=== PATIENT | male | born 1990 | race Caucasian/White ===

== ENCOUNTER 2021-08-14 17:41 | Emergency (ER) | payer OTHER, SELFPAY ==
--- NOTE | ~2021-08-14 | CT_ITS ---
EXAMINATION: CT brain wo con DATE: 08/14/2021 21:34 INDICATION: Seizure. Altered mental status. TECHNIQUE: Computed tomography (CT) of the head was performed without intravenous contrast. The mA wa s adjusted according to patient size. Iterative reconstruction technique was employed. The dose-lengt h product was 605.33 mGy-cm. COMPARISON: Head CT 09/26/2009 FINDINGS: There is no intracranial hemorrhage, acute infarction, or abnormal intracranial mass lesion . The ventricles are normal in size. The paranasal sinuses are clear. The mastoid air cells are simi l. IMPRESSION: 1. Normal brain. Reviewed, dictated and finalized at location A. IMPRESSION: 1. Normal brain.
[2021-08-14 17:45] VITALS: BP 134/78; PULSE 120; RESP 16; TEMP 36.1; O2SAT 97
[2021-08-14 20:32] VITALS: BP 150/109; PULSE 112; RESP 28; O2SAT 97
[2021-08-14 20:38] VITALS: BP 145/85
--- NOTE | 2021-08-14 20:39 | ECG_ITS ---
Measurements Intervals [place] Rate: 91 P: 26 GA: 160 QRS: 9 QRSD: 105 T: 28 QT: 368 QTc: 454 Interpretive Statements SINUS RHYTHM NORMAL ECG Electronically Signed On 08-15-2021 6:39:02 CDT by Tex Coronado D.O.
[2021-08-14] MEDS: SODIUM CHLORIDE 0.9% IV 1,000 ML 999 ML IV CONT (20:45)
[2021-08-14 20:51] LABS: Basophils Absolute Auto 0.1 K/mm3 (0.0-0.1); Basophils Percent Auto 0.3 % (0.2-1.2); Eosinophils Percent Auto 0.1 % (0-4.4); Hematocrit 52.7 % (42.0-52.0); Hemoglobin 17.2 g/dL (14.0-18.0); Immature Granulocyte Absolute 0.06 K/mm3 (0.00-0.031); Immature Granulocyte Percent A 0.4 % (0-0.5); Lymphocytes Absolute Auto 0.95 K/mm3 (0.9-3.2); Lymphocytes Percent Auto 6.5 % (18.3-44.2); Mean Corpuscular HGB Conc 32.6 g/dl (32-36); Mean Corpuscular Hemoglobin 27.9 pg (26-34); Mean Corpuscular Volume 85.4 fl (80-100); Mean Platelet Volume 10.3 fl (7.4-10.4); Monocytes Absolute Auto 0.6 K/mm3 (0.1-0.6); Monocytes Percent Auto 3.8 % (2.6-8.5); Neutrophils Absolute Auto 12.9 K/mm3 (1.3-6.7); Neutrophils Percent Auto 88.9 % (45.5-73.1); Platelet Count Result 292 k/mm3 (150-375); Red Blood Count 6.17 M/mm3 (4.6-6.20); Red Cell Distribution Width 13.2 % (11.5-14.5); White Blood Count 14.6 K/mm3 (4.5-10.0)
[2021-08-14 21:03] LABS: Alanine Aminotransferase 24 U/L (4-50); Alkaline Phosphatase 92 U/L (38-126); Anion Gap 10 mmol/L (8-16); Aspartate Amino Transferase 31 U/L (17-59); Bilirubin,Total 0.7 mg/dL (0.2-1.3); Blood Urea Nitrogen 9 mg/dL (9-20); Calcium 8.8 mg/dL (8.4-10.2); Carbon Dioxide 25 mmol/L (22-30); Chloride 104 mmol/L (98-107); Estimated CRCL calculation 133 ml/min; Estimated Glomerular Filt Rate > 60; Glucose 103 mg/dL (65-110); Potassium 3.9 mmol/L (3.4-5.0); Sodium 139 mmol/L (137-145)
--- NOTE | 2021-08-14 21:19 | ED.SEIZURE ---
HPI - Seizure General Chief Complaint: Seizure Stated Complaint: ? seizure Time Seen by Provider: 08/14/21 20:30 Source: patient History of Present Illness HPI Narrative: Patient resents with concern for seizure. He was getting ready for bed when his partner noted transient alteration in awareness he appeared to be shaking entire episode lasted 1 minute he woke up and seemed confused as to what happened. There was concern for seizure so he came to the ER for evaluation. Patient reports he feels normal now. [place] normal earlier in the day denies any fevers, cough, congestion, nausea, vomiting. Denies any similar symptoms in the past. Denies any recreational drug use or recent changes to any of his medications. Related Data Allergies Allergy/AdvReac Type Severity Reaction Status Date / Time Penicillins Allergy Unknown Anaphylaxis Verified 08/14/21 20:37 Review of Systems Review of Systems: CONSTITUTIONAL: Denies fever, chills, or sweats. EYES: Denies visual changes, redness, or discharge. ENT: Denies rhinorrhea, congestion, sore throat, or otalgia. CARDIOVASCULAR: Denies chest pain, palpitations, or edema. RESPIRATORY: Denies cough or dyspnea. GASTROINTESTINAL: Denies abdominal pain, nausea, vomiting, or diarrhea. GENITOURINARY: Denies dysuria or hematuria. SKIN: Denies rash or itching. MUSCULOSKELETAL: Denies back pain, joint pain, or myalgia. NEUROLOGIC: Denies headache, numbness, dizziness, or weakness. PSYCHIATRIC: Denies anxiety or depression. All systems reviewed & are unremarkable except as noted in HPI and below PMFSH Past Medical History Medical History Anxiety Depression Family History Family History Father Hypertension Mother Family history of scoliosis Social History Social History Smoking status: Current every day smoker Alcohol intake: current Exam Narrative: GENERAL: Well-appearing, well-nourished, and in no acute distress. HEAD: Normocephalic, atraumatic. EYES: PERRLA and EOMI. ENT: Nares clear, no rhinorrhea or epistaxis. Mucous membranes moist. NECK: Supple. No masses. No JVD CHEST: Clear to auscultation. No respiratory distress. No wheezes rales or rhonchi HEART: Regular rate and rhythm. No murmur heard. Normal peripheral pulses. ABDOMEN: Soft, nontender, nondistended, normal active bowel sounds. EXTREMITIES: Normal range of motion. No edema. SKIN: Warm, dry, no rash. NEURO: Cranial nerves II through XII are intact patient is 5 out of 5 strength, sensation intact light touch in all extremities. Alert and oriented x3. PSYCH: Normal mood and affect. Course Reevaluation(s) Reevaluation #1: Patient resting comfortably results plan reviewed with patient. Patient is comfortable outpatient plan. Date: 08/14/21 Time: 21:50 Vital Signs Vital signs: Vital Signs Temperature 36.1 C L 08/14/21 17:45 Pulse Rate 120 H 08/14/21 17:45 Respiratory Rate 16 08/14/21 17:45 Blood Pressure 134/78 08/14/21 17:45 Pulse Oximetry 97 08/14/21 17:45 Temperature 36.1 C L 08/14/21 17:45 Pulse Rate 90 08/14/21 22:19 Respiratory Rate 18 08/14/21 22:19 Blood Pressure 159/96 H 08/14/21 22:19 Pulse Oximetry 97 08/14/21 22:19 MDM - Seizure MDM Narrative Medical decision making narrative: H&P as above, vss, pt looks clinically well, exam without focal neurological deficits, labs clinically unremarkable, img without acute process, additional labs/img considered, symptomatic relief available as needed, on reevaluation pt continues to looks clinically well. Symptoms remain of unclear etiology event was brief with quick recovery may represent a syncopal event versus seizure activity given his first-time episode we will hold off on antiepileptics and have outpatient follow-up with neurology., dns intracranial hemorrhage, mirela
[2021-08-14 22:19] VITALS: BP 159/96; PULSE 90; RESP 18; O2SAT 97
[2021-08-18 22:08] LABS: Prolactin 10.7 ng/mL (***)
== END 2021-08-14 22:20 | disposition home or self-care (01) ==
PROVIDERS: Emergency Provider Emergency Medicine; PCP Student in an Organized Health Care Education/Training Program
DX: R41.82 Altered mental status, unspecified (principal); F17.200 Nicotine dependence, unspecified, uncomplicated
CPT/HCPCS: 36415; 70450; 80053; 84146; 85025; 93005; 96360; 99284; J7030